=== PATIENT | female | born 1985 | race Two or more races ===

== ENCOUNTER → 2017-10-16 | Outpatient (CLI) | payer BC | LOC: CLAB 11:32 | PROVIDERS: ATTEND Obstetrics & Gynecology | DX: O26.872 Cervical shortening, second trimester (principal) | CPT/HCPCS: 82731 ==

== ENCOUNTER → 2017-11-03 | Outpatient (CLI) | payer BC ==
[~2017-11-03] MED LIST: BETAMETHASONE SOD PHOS/ACETATE SUSP 30 MG/5 ML VIAL IM SCH; SODIUM CHLOR 0.45% 1000 ML IV SCH; ceFAZolin 2 GM PREMIX 50 ML IV SCH
== END ==
LOC: HOBG 09:51
PROVIDERS: ATTEND Obstetrics & Gynecology
DX: O26.873 Cervical shortening, third trimester (principal)
CPT/HCPCS: 76816; 76817; 96372; J0702

== ENCOUNTER → 2017-11-04 | Outpatient (CLI) | payer BC ==
[~2017-11-04] MED LIST changes: +BETAMETHASONE SOD PHOS/ACETATE SUSP 30 MG/5 ML VIAL IM ONE; -BETAMETHASONE SOD PHOS/ACETATE SUSP 30 MG/5 ML VIAL IM SCH; -SODIUM CHLOR 0.45% 1000 ML IV SCH; -ceFAZolin 2 GM PREMIX 50 ML IV SCH
== END ==
LOC: HOBG 09:44
PROVIDERS: ATTEND Obstetrics & Gynecology
DX: O26.872 Cervical shortening, second trimester (principal); Z3A.00 Weeks of gestation of pregnancy not specified
CPT/HCPCS: 96372; J0702

== ENCOUNTER 2017-11-05 04:17 | Emergency (ER) | payer BC ==
[2017-11-05] MEDS ORDERED: DEXTROSE 5%-LACTATED RING INJ 1,000 ML IV SCH (05:15)
[2017-11-05 05:44] LABS: BACTERIA, URINE FEW /hpf; BILIRUBIN, URINE NEG (NEG); BLOOD, URINE NEG (NEG); GLUCOSE,URINE NEG (NEG); KETONE, URINE NEG (NEG); MUCUS URINE FEW /lpf (OCC); NITRITE,URINE NEG (NEG); PH, URINE 6.5 (5.0-8.5); SQUAMOUS EPITHELIAL CELL URINE 4 /hpf (0-5); TRANSITIONAL EPI CELLS, URINE <1 /hpf; URINE COLOR LIGHT-YELLOW (YELLW/STRAW); URINE LEUKOCYTE ESTERASE MOD (NEG)
--- NOTE | 2017-11-05 07:51 | PD ---
HPI Chief Complaint contractions/cramping Travel History International Travel<30 Days: No Contact w/Intl Traveler<30Days: No Known Affected Area: No History of Present Illness HPI 32-year-old , IUP at 28.0 care complicated by a shortened cervix The patient presents complaining of the onset of cramping that woke her up from sleep at 2 AM. She reports her cramping is like menstrual cramps and was about every 4-6 minutes over the period of greater than 2 hours. There were no aggravating or alleviating factors and no attempted treatments. Of note she is being monitored and treated for a shortened cervix in the range of 1.2-2 cm. She received betamethasone on November 03 and November 04. She is also on vaginal progesterone daily. She denies any leaking of fluid or vaginal bleeding. She reports good movement. She denies painful contractions. Weeks Gestation: 28 Para: 1 : 2 History Past Medical History Medical History: Denies Significant Hx Obstetric History Obstetric History 001 1 Past Surgical History Narrative Surgical Appendectomy Family History Family History: Negative Social History Alcohol Use: No Tobacco Use: No Substance Abuse: No Allergies-Medications (Allergen,Severity, Reaction): Coded Allergies: codeine (Unverified Allergy, Severe, RASH, 06/09/17) Review of Systems Except as stated in HPI: all other systems reviewed are Neg Physical Exam Narrative GENERAL: Well-nourished, well-developed patient. SKIN: Warm and dry. HEAD: Normocephalic and atraumatic. EYES: No scleral icterus. No injection or drainage. ENT: No nasal drainage noted. Mucous membranes pink. Airway patent. NECK: Supple, trachea midline. No JVD. CARDIOVASCULAR: Regular rate and rhythm without murmurs, gallops, or rubs. RESPIRATORY: Deferred BREASTS: Bilateral exam showed no masses , no retractions, no nipple discharge. ABDOMEN/GI: Abdomen soft, non-tender, bowel sounds present, no rebound, no guarding Gravid GENITOURINARY: External Genitalia: intact and normal in appearance. Normal BUS glands. Speculum exam reveals normal-appearing rugated and physiologic appearing discharge. fibronectin was obtained. The cervix visually appeared closed. SVE 1/60-70/high/posterior. Repeat examination after 2.5 hours revealed a cervical exam that was unchanged. Uterine Contractions: Initially there is uterine irritability approximately every 2-3 minutes, appears to have nearly resolved with IV fluids with some irregular irritability FHT's: heart tones are in the 120s to 130s for baseline with moderate long -term variability, good accelerations, no decelerations noted. The day heart rate tracing is reactive for gestational age and is a category 1 tracing. heart tones are appropriate and reassuring for gestational age. EXTREMITIES: No cyanosis or edema. BACK: Nontender without obvious deformity. NEUROLOGICAL: Awake and alert. Motor and sensory grossly within normal limits. Five out of 5 muscle strength in all muscle groups. Normal speech. Musculoskeletal: Grossly normal range of motion, gait, muscle strength Psychiatric: Grossly normal memory and affect Data Data Orders Orders Vital Signs (Adult) .ON ADMISSION (11/05/17 05:01) ^ Labor Status (11/05/17 05:01) Urinalysis - C+S If Indicated (11/05/17 05:01) ^ Non Stress Test (11/05/17 05:01) ^ Hydration (11/05/17 05:01) Fibronectin (11/05/17 05:01) Dextrose 5%-Lactated Ring Inj (D5-Lr Inj (11/05/17 05:15) Labs Laboratory Tests Test 11/05/17 05:00 Urine Color LIGHT-YELLOW Urine Turbidity CLEAR Urine pH 6.5 Urine Specific [place] 1.010 Urine Protein NEG Urine Glucose (UA) NEG Urine Ketones NEG Urine Occult Blood NEG Urine Nitrite NEG Urine Bilirubin NEG Urine Urobilinogen LESS THAN 2.0 Urine Leukocyte Esterase MOD Urine RBC 1 Urine WBC 1 Urine Squamous Epithelial Cells 4 Urine Transitional Epithelial Cells <1 Urine Bacteria FEW Urine Mucus FEW Microscopic Urinalysis Comment CULT NOT INDICATED Fibronectin NEGATIVE MDM Plan Assessment/plan: 1. IUP at 28.0 2. Shortened cervix with contractions: Patient is undergoing vaginal progesterone therapy and received betamethasone. Her uterine cramping and irritability improved with IV fluids. fibronectin was performed and was negative. Her vaginal exam was 1 cm dilated but unchanged over 2-1/2 hour observation period. Discussed with patient that this time there is no evidence of labor. Recommended the patient continue with her vaginal progesterone and she was given strict labor precautions. All of her questions were answered. This is discussed with Dr. Zuniga who was in agreement with plan and recommended the patient continue pelvic rest and bed rest. Dr. Zuniga presented to bedside and spoke with patient as well. The patient was given these instructions and agrees to comply. Strict labor precautions are given. 3. Prematurity: The patient is received betamethasone 2 on November 03 and 2017 4. well-being: Reassuring testing with reactive NST for gestational age. FHR is reassuring and appropriate for gestational age. kick counts daily 4. Follow-up with Dr. Zuniga in 2-3 days or sooner if needed Diagnosis Diagnosis: Primary Impression: 28 weeks gestation of Additional Impressions: Antepartum cervical shortening Threatened labor, antepartum Disposition: 01 DISCHARGE HOME Condition: Libby Alejandre MD Nov 05, 2017 07:51
== END 2017-11-05 08:19 | disposition home or self-care (01) ==
LOC: HOBED 04:17
DX: O47.03 False labor before 37 completed weeks of gestation, third trimester (principal); O26.873 Cervical shortening, third trimester; Z3A.28 28 weeks gestation of pregnancy
CPT/HCPCS: 81001; 82731; 99283

== ENCOUNTER → 2017-11-11 | Outpatient (CLI) | payer BC | LOC: HPND 07:22 | PROVIDERS: ATTEND Obstetrics & Gynecology | DX: O26.873 Cervical shortening, third trimester (principal) | CPT/HCPCS: 76815; 76817 ==

== ENCOUNTER → 2017-11-25 | Outpatient (CLI) | payer BC | LOC: HPND 12:17 | PROVIDERS: ATTEND Obstetrics & Gynecology | DX: O26.872 Cervical shortening, second trimester (principal) | CPT/HCPCS: 76816; 76817; 82731 ==

== ENCOUNTER → 2017-12-17 | Outpatient (CLI) | payer BC | LOC: HPND 08:08 | PROVIDERS: ATTEND Obstetrics & Gynecology | DX: O26.873 Cervical shortening, third trimester (principal); O09.213 Supervision of pregnancy with history of pre-term labor, third trimester | CPT/HCPCS: 76816 ==

== ENCOUNTER 2018-01-15 09:28 | Inpatient (IN) | payer BC ==
[2018-01-15] VITALS (20 sets, daily range): BP systolic 104–129; BP diastolic 54–82; PULSE 78–123; RESP 17–18; TEMP 97.8–98.1
[2018-01-15 10:55] LABS: AUTOMATED NEUTROPHIL # 7.1 TH/MM3 (1.8-7.7); BASOPHIL % 0.4 % (0.0-2.0); EOSINOPHIL # 0.1 TH/MM3 (0-0.4); EOSINOPHIL % 0.7 % (0.0-4.0); HEMATOCRIT 37.9 % (35.0-46.0); HEMOGLOBIN 13.1 GM/DL (11.6-15.3); LYMPH % 17.5 % (9.0-44.0); LYMPHOCYTE # 1.7 TH/MM3 (1.0-4.8); MEAN CELL VOLUME 90.4 FL (80.0-100.0); MEAN CORPUSCULAR HEMOGLOBIN 31.3 PG (27.0-34.0); MEAN CORPUSCULAR HGB CONC 34.7 % (32.0-36.0); MEAN PLATELET VOLUME 8.9 FL (7.0-11.0); MONO % 6.9 % (0.0-8.0); MONOCYTE # 0.7 TH/MM3 (0-0.9); NEUT % 74.5 % (16.0-70.0); PLATELET COUNT 274 TH/MM3 (150-450); RED CELL DISTRIBUTION WIDTH 12.6 % (11.6-17.2); WHITE BLOOD COUNT 9.5 TH/MM3 (4.0-11.0)
[2018-01-15 11:05] LABS: BACTERIA, URINE OCC /hpf; BILIRUBIN, URINE NEG (NEG); BLOOD, URINE NEG (NEG); GLUCOSE,URINE NEG (NEG); KETONE, URINE TRACE mg/dL (NEG); MUCUS URINE FEW /lpf (OCC); NITRITE,URINE NEG (NEG); SQUAMOUS EPITHELIAL CELL URINE 8 /hpf (0-5); URINE COLOR YELLOW (YELLW/STRAW); URINE LEUKOCYTE ESTERASE LARGE (NEG)
[2018-01-15] MEDS ORDERED: fentaNYL 2MCG-BUPIV 0.125% INJ 100 ML ONE (11:16)
[2018-01-15] MEDS ORDERED: CITRIC ACID-SODIUM CITRATE LIQ 30 ML UDC PO SCH (12:00)
[2018-01-15] MEDS ORDERED: fentaNYL 2MCG-BUPIV 0.125% 100 ML EPIDURAL SCH (12:00)
[2018-01-15] MEDS ORDERED: DO NOT ADMINISTER ANTICOAGULANTS PRN (12:00)
[2018-01-15] MEDS ORDERED: OXYTOCIN 30 UNITS 500ML PREMIX IV ONE (12:00)
[2018-01-15] MEDS ORDERED: ONDANSETRON HCL 4 MG/2 ML VIAL IV PUSH PRN (12:00)
[2018-01-15] MEDS ORDERED: LIDOCAINE HCL 1% 50 ML VIAL I-DERMAL PRN (12:00)
[2018-01-15] MEDS ORDERED: LIDOCAINE HCL 1% 50 ML VIAL INFIL PRN (12:00)
[2018-01-15] MEDS ORDERED: LACTATED RINGER'S 1000 ML IV SCH (12:00)
[2018-01-15] MEDS ORDERED: NS 1000 ML IV PRN (12:00)
[2018-01-15] MEDS ORDERED: LACTATED RINGER'S 1000 ML BOLUS IV PRN (12:00)
[2018-01-15] MEDS ORDERED: MINERAL OIL 10 ML VIAL TOPICAL PRN (12:00)
[2018-01-15] MEDS ORDERED: ePHEDrine/NS 25 MG/5 ML SYRINGE IV PUSH PRN (12:00)
[2018-01-15] MEDS ORDERED: NO SYSTEM NARCOTICS PRN (12:00)
[2018-01-15] MEDS ORDERED: NS 500 ML BOLUS IV PRN (12:00)
--- NOTE | 2018-01-15 14:19 | PD.OB.DELI ---
Weeks gestation: 38 Gest age assessed date: Jan 15, 2018 Pt started active labor?: Yes Active labor start date: Jan 15, 2018 Medical induction of labor?: No Artificial rupture of membrane: Yes Artificial ROM date: Jan 15, 2018 Artifical ROM time: 12:01 Episiotomy: None Vaginal Delivery: Normal Presentation: Occiput anterior Nuchal Cord: None Delayed cord clamping (45 sec): Yes : Female Delivery date: Jan 15, 2018 Delivery time: 13:54 One Minute : 8 Five Minute : 9 Weight: 6/11 Placenta: Spontaneous delivery, Intact, 3 vessel cord Laceration: Perineal laceration, 2 deg Repair: Vicryl running Estimated blood loss: 300 Additional Information nice delivery of Pinky No problems. Priscilla Zuniga MD Jan 15, 2018 14:19
[2018-01-15] MEDS ORDERED: ACETAMINOPHEN 325 MG TAB PO PRN (14:30)
[2018-01-15] MEDS ORDERED: DOCUSATE SODIUM 50 MG/SENNA 8.6 MG TAB PO PRN (14:30)
[2018-01-15] MEDS ORDERED: OXYTOCIN 30 UNITS-500ML PREMIX 500 ML IV ONE (14:30)
[2018-01-15] MEDS ORDERED: WITCH HAZEL 50%/GLYCERIN 12.5% 40 PAD JAR TOPICAL PRN (14:30)
[2018-01-15] MEDS ORDERED: ALUMINUM/MAGNESIUM/SIMETH 30 ML CUP PO PRN (14:30)
[2018-01-15] MEDS ORDERED: ZOLPIDEM TARTRATE 5 MG TAB PO PRN (14:30)
[2018-01-15] MEDS ORDERED: ONDANSETRON ODT 4 MG TAB PO PRN (14:30)
[2018-01-15] MEDS ORDERED: OXYTOCIN 30 UNITS-500ML PREMIX 500 ML IV SCH (14:30)
[2018-01-15] MEDS ORDERED: BENZOCAINE 20% TOPICAL SPRAY 60 ML CAN TOPICAL PRN (14:30)
[2018-01-15] MEDS ORDERED: oxyCODONE/ACETAMINOPHEN 5 MG/325 MG TAB PO PRN ×2 (14:30)
[2018-01-15] MEDS ORDERED: SODIUM CHLORIDE 0.9% FLUSH 10 ML FLUSH IV FLUSH PRN (14:30)
[2018-01-15] MEDS ORDERED: MEASLES, MUMPS, RUBELLA VACCINE 0.5 ML VIAL SQ ONE (16:00)
[2018-01-15] MEDS ORDERED: DIPHTH/TETANUS/ACEL PERTUSSIS (BOOSTER) 0.5 ML VIAL/PFS IM ONE (16:00)
--- NOTE | 2018-01-15 16:44 | HHI.DCPOC ---
Discharge Care Plan Diagnosis: (1) Vaginal delivery Report Symptoms to Your Doctor -Temperature above 100.5 degrees -Redness, of incision or excessive or foul smelling drainage -Unusual pain or calf pain -Increased vaginal bleeding -Painful or difficulty urinating -Feelings of extreme sadness or anxiety after 2 weeks Goals to Promote Your Health * To prevent worsening of your condition and complications * To maintain your health at the optimal level Directions to Meet Your Goals Take your medications as prescribed Follow your dietary instruction Follow activity as directed Ensure plenty of rest for recovery Drink fluids for hydration Keep your appointments as scheduled Take your immunizations and boosters as scheduled If your symptoms worsen call your PCP, if no PCP go to Urgent Care Center or Emergency Room Smoking is Dangerous to Your Health. Avoid second hand smoke Call the 24-hour crisis hotline for domestic abuse at Priscilla Zuniga MD Jan 15, 2018 16:44
[2018-01-15] MEDS ORDERED: SODIUM CHLORIDE 0.9% FLUSH 10 ML FLUSH IV FLUSH SCH (21:00)
[2018-01-15] MEDS: IBUPROFEN 800 MG TAB PO PRN (22:39)
[2018-01-16] MEDS: IBUPROFEN 800 MG TAB PO PRN ×2 (06:34→14:08)
--- NOTE | 2018-01-16 07:44 | HHI.OB ---
Subjective Post Day: 1 Remarks doing well nursing pain not significant Objective Vitals/I&O Vital Signs Date Time Temp Pulse Resp B/P (MAP) Pulse Ox O2 Delivery O2 Flow Rate FiO2 01/15/18 15:45 18 01/15/18 15:31 79 128/68 (88) 01/15/18 14:00 102 129/61 (83) 01/15/18 13:46 123 104/71 (82) 01/15/18 13:40 89 01/15/18 13:35 102 01/15/18 13:30 94 01/15/18 13:30 86 110/76 (87) 01/15/18 13:25 78 01/15/18 13:20 87 01/15/18 13:15 100 01/15/18 13:15 83 109/72 (84) 01/15/18 13:01 94 118/82 (94) 01/15/18 12:45 79 112/62 (79) 01/15/18 12:30 88 113/54 (73) 01/15/18 12:15 89 113/67 (82) 01/15/18 12:10 85 121/71 (88) 01/15/18 12:09 98.1 01/15/18 11:26 92 128/65 (86) 01/15/18 11:25 105 01/15/18 11:25 17 01/15/18 11:23 103 118/68 (85) 01/15/18 10:00 97.8 Objective Remarks GENERAL: Well-nourished, well-developed patient. CARDIOVASCULAR: Regular rate and rhythm without murmurs, gallops, or rubs. RESPIRATORY: Breath sounds equal bilaterally. No accessory muscle use. ABDOMEN/GI: Abdomen soft, non-tender. Fundus: Firm, non-tender at umbilicus. GENITOURINARY: Light to moderate bleeding. EXTREMITIES: No cyanosis or edema, non-tender, without signs of DVT. Medications and IVs Current Medications Medications (Trade) Dose Ordered Sig/Tana Route Start Time Stop Time Status Last Admin (NS Flush) 2 ml BID IV FLUSH 01/15/18 21:00 (NS Flush) 2 ml UNSCH PRN IV FLUSH 01/15/18 14:30 (Tylenol) 650 mg Q4H PRN PO 01/15/18 14:30 (Motrin) 800 mg Q8H PRN PO 01/15/18 14:30 01/16/18 06:34 (Percocet 5-325 Mg) 1 tab Q4H PRN PO 01/15/18 14:30 (Percocet 5-325 Mg) 2 tab Q4H PRN PO 01/15/18 14:30 (Americaine 20% Top Spr) 1 spray Q4H PRN TOPICAL 01/15/18 14:30 (Tucks Pads) 1 applic QID PRN TOPICAL 01/15/18 14:30 (Chata-Colace) 2 tab Q12H PRN PO 01/15/18 14:30 (Ambien) 5 mg HS PRN PO 01/15/18 14:30 (Mag-Al Plus Susp Liq) 15 ml Q8H PRN PO 01/15/18 14:30 (Zofran Odt) 4 mg Q6H PRN PO 01/15/18 14:30 Assessment/Plan Assessment and Plan Doing well plan for home in Rosi Méndez MD Jan 16, 2018 07:44
== END 2018-01-16 17:23 | disposition home or self-care (01) | DRG 775 ==
LOC: H2EB 09:28 → H1EA 16:14
PROVIDERS: ADMIT Obstetrics & Gynecology; ATTEND Obstetrics & Gynecology
PROC: 10E0XZZ Delivery of Products of Conception, External Approach (ICD-10-PCS; principal; 2018-01-15)
PROC: 0KQM0ZZ Repair Perineum Muscle, Open Approach (ICD-10-PCS; 2018-01-15)
DX: O70.1 Second degree perineal laceration during delivery (principal); O99.02 Anemia complicating childbirth; D64.9 Anemia, unspecified; Z37.0 Single live birth; Z3A.38 38 weeks gestation of pregnancy
CPT/HCPCS: 59025; 80307; 81001; 85025; 86900; 86901; 90707; 90715; G0481; J2590